=== PATIENT | male | born 1980 | race Caucasian/White ===

== ENCOUNTER 2017-02-09 20:05 | Emergency (ER) | payer OTHER ==
[2017-02-09] MEDS ORDERED: Zofran 4 MG/2 ML VIAL IV ONE (20:30)
[2017-02-09] MEDS ORDERED: TORAdol 30 mg Injection IV ONE (20:30)
[2017-02-09] MEDS ORDERED: Sodium Chloride 0.9% 1000 ML 1,000 ML IV SCH (20:30)
[2017-02-09] MEDS ORDERED: Sodium Chloride 0.9% 1000 ML 1,000 ML ONE (20:36)
[2017-02-09] MEDS ORDERED: TORAdol 30 mg Injection ONE (20:36)
[2017-02-09] MEDS ORDERED: Zofran 4 MG/2 ML VIAL ONE (20:36)
--- NOTE | 2017-02-09 20:37 | ERPHSYRPT ---
- History of Present Illness Time Seen by Provider: 02/09/17 20:27 Historian: patient Exam Limitations: no limitations Patient Subjective Stated Complaint: pt states he has been having intermittent lower back and lt abd/groin pain since lst night. Triage Nursing Assessment: pt alert and oriented, answers questions approp. pt ambulatory with steady gait noted. skin pwarm and dry. respirations nonlabored with lungs cta. abd soft and nonder, bowel sounds present x4 quads Physician History: SINCE LAST NIGHT PT HAS HAD INTERMITTENT SHARP/STABBING LEFT LOWER BACK PAIN, LEFT LOWER QUADRANT ABDOMINAL PAIN AND LEFT GROIN PAIN WITH NAUSEA AND DIAPHORESIS WHEN THE PAIN OCCURS. TODAY PT NOTICED TEA COLORED URINE AND URINARY URGENCY. LAST BM WAS THIS AM AND WNL. Allergies/Adverse Reactions: No Known Drug Allergies Allergy (Verified 02/09/17 20:28) Home Medications: Ustekinumab [Stelara] 90 mg SQ UD 02/09/17 [History] Hx Tetanus, Diphtheria Vaccination/Date Given: Yes Hx Influenza Vaccination/Date Given: No Hx Pneumococcal Vaccination/Date Given: No Immunizations Up to Date: Yes - Review of Systems Constitutional: No Fever, No Chills Respiratory: No Dyspnea Cardiac: No Chest Pain Abdominal/Gastrointestinal: Abdominal Pain (LEFT LOWER), Nausea Genitourinary Symptoms: Urgency, Other (LEFT GROIN PAIN) Musculoskeletal: Back Pain (LEFT LOWER) Endocrine: Excessive Sweating All Other Systems: Reviewed and Negative - Past Medical History Pertinent Past Medical History: Yes Other Medical History: plaque psoriasis - Past Surgical History Past Surgical History: No - Social History Smoking Status: Current every day smoker How long have you smoked: 20yrs Exposure to second hand smoke: Yes Drug Use: none Patient Lives Alone: No - Nursing Vital Signs Nursing Vital Signs: Initial Vital Signs Temperature 97.5 F 02/09/17 20:15 Pulse Rate 84 02/09/17 20:15 Respiratory Rate 16 02/09/17 20:15 Blood Pressure 152/91 02/09/17 20:15 O2 Sat by Pulse Oximetry 96 02/09/17 20:15 Pain Scale Pain Intensity 6 - Physical Exam General Appearance: alert Eye Exam: PERRL/EOMI Ears, Nose, Throat Exam: TMs normal, pharynx normal, moist mucous membranes Neck Exam: normal inspection Respiratory Exam: lungs clear Cardiovascular Exam: normal heart sounds Gastrointestinal/Abdomen Exam: soft, normal bowel sounds, No tenderness Back Exam: normal range of motion Extremity Exam: normal inspection, No pedal edema Neurologic Exam: alert, cooperative Skin Exam: warm, dry SpO2 Interpretation: normal SpO2: 96 Oxygen Delivery: Room Air - Course Nursing assessment & vital signs reviewed: Yes - CT Exams Abdomen/Pelvis CT Interpretation: Discussed w/radiologist (NO COMPS. 4MM URINARY BLADDER STONE ADJACENT TO LEFT UVJ WITH MILD LEFT URETER PROMINENCE & MILD HYDRONEPHROSIS CONSISTENT WITH RECENT PASSAGE. REMAINING ABD/PEL NEGATIVE.) Ordered Tests: Active Orders 24 hr Category Date Time Status IV Insertion STAT Care 02/09/17 20:30 Active ABDOMEN AND PELVIS W/0 CONTRAS [CT] Stat Exams 02/09/17 20:31 Taken AMYLASE Stat Lab 02/09/17 20:30 Completed CBC W DIFF Stat Lab 02/09/17 20:30 Completed CMP Stat Lab 02/09/17 20:30 Completed CULTURE,URINE Stat Lab 02/09/17 20:30 Received LIPASE Stat Lab 02/09/17 20:30 Completed MAG [MAGNESIUM] Stat Lab 02/09/17 20:30 Completed UA W/ MICROSCOPIC Stat Lab 02/09/17 20:30 Completed Medication Summary Generic Name Dose Route Start Last Admin Trade Name Freq PRN Reason Stop Dose Admin Sodium Chloride 1,000 mls @ 100 mls/hr 02/09/17 20:30 02/09/17 20:41 Sodium Chloride 0.9% 1000 Ml IV 03/11/17 20:29 100 mls/hr .Q10H TEOFILO Administration Discontinued Medications Generic Name Dose Route Start Last Admin Trade Name Freq PRN Reason Stop Dose Admin Ketorolac Tromethamine 30 mg 02/09/17 20:30 02/09/17 20:41 Toradol 30 Mg Injection IV 02/09/17 20:31 30 mg STAT ONE Administration Ketorolac Tromethamine Confirm 02/09/17 20:36 Toradol 30 Mg Injection Administered 02/09/17 20:37 Dose 30 mg .ROUTE .STK-MED ONE Ondansetron HCl 4 mg 02/09/17 20:30 02/09/17 20:41 Zofran 4 Mg/2 Ml Vial IV 02/09/17 20:31 4 mg STAT ONE Administration Ondansetron HCl Confirm 02/09/17 20:36 Zofran 4 Mg/2 Ml Vial Administered 02/09/17 20:37 Dose 4 mg .ROUTE .STK-MED ONE Lab/Rad Data: Laboratory Result Diagrams 02/09/17 20:30 02/09/17 20:30 Laboratory Results 02/09/17 02/09/17 02/09/17 Range/Units 20:30 20:30 20:30 WBC (4.0-10.5) K/mm3 RBC (4.1-5.6) M/mm3 Hgb (12.5-18.0) gm/dl Hct (42-50) % MCV (78-100) fl MCH (26-32) pg MCHC (32-36) g/dl RDW (11.5-14.0) % Plt Count (150-450) K/mm3 MPV (6-9.5) fl Gran % (36.0-66.0) % Lymphocytes % (24.0-44.0) % Monocytes % (0.0-12.0) % Eosinophils % (0.00-5.0) % Basophils % (0.0-0.4) % Basophils # (0-0.4) Sodium 139 (136-145) mEq/L Potassium 4.0 (3.5-5.1) mEq/L Chloride 102 (98-107) mEq/L Carbon Dioxide 26.4 (21-32) mEq/L Anion Gap 14.4 (5-15) MEQ/L BUN 10 (9-20) mg/dL Creatinine 1.07 (0.55-1.30) mg/dl Estimated GFR > 60 ML/MIN Glucose 97 (70-110) MG/DL Calcium 9.5 (8.5-10.1) mg/dL Magnesium 2.1 (1.8-2.4) mg/dL Total Bilirubin 0.40 (0.2-1.0) mg/dL AST 16 (15-37) U/L ALT 36 (12-78) U/L Alkaline Phosphatase 83 (46-116) U/L Serum Total Protein 7.8 (6.4-8.2) gm/dL Albumin 4.2 (3.4-5.0) g/dL Amylase 49 (25-115) U/L Lipase 123 (73-393) U/L Ur Collection Type CLEAN CATCH Urine Color YELLOW (YELLOW) Urine Appearance CLOUDY (CLEAR) Urine pH 5.0 (5-6) Ur Specific [place] 1.025 (1.005-1.025) Urine Protein TRACE (Negative) Urine Ketones NEGATIVE (NEGATIVE) Urine Blood 250 (0-5) [place]/ul Urine Nitrite NEGATIVE (NEGATIVE) Urine Bilirubin NEGATIVE (NEGATIVE) Urine Urobilinogen NORMAL (0-1) mg/dL Ur Leukocyte Esterase NEGATIVE (NEGATIVE) Urine Microscopic RBC >100 (0-2) /HPF Urine Bacteria FEW (NEGATIVE) /HPF Urine Mucus SLIGHT (NEGATIVE) /HPF Urine Glucose NEGATIVE (NEGATIVE) mg/dL Specimen Received [id number] 02/09/17 Range/Units 20:30 WBC 14.1 H (4.0-10.5) K/mm3 RBC 5.88 H (4.1-5.6) M/mm3 Hgb 16.2 (12.5-18.0) gm/dl Hct 48.5 (42-50) % MCV 82.5 (78-100) fl MCH 27.5 (26-32) pg MCHC 33.4 (32-36) g/dl RDW 14.8 H (11.5-14.0) % Plt Count 232 (150-450) K/mm3 MPV 11.6 H (6-9.5) fl Gran % 62.5 (36.0-66.0) % Lymphocytes % 25.4 (24.0-44.0) % Monocytes % 8.2 (0.0-12.0) % Eosinophils % 3.3 (0.00-5.0) % Basophils % 0.6 (0.0-0.4) % Basophils # 0.08 (0-0.4) Sodium (136-145) mEq/L Potassium (3.5-5.1) mEq/L Chloride (98-107) mEq/L Carbon Dioxide (21-32) mEq/L Anion Gap (5-15) MEQ/L BUN (9-20) mg/dL Creatinine (0.55-1.30) mg/dl Estimated GFR ML/MIN Glucose (70-110) MG/DL Calcium (8.5-10.1) mg/dL Magnesium (1.8-2.4) mg/dL Total Bilirubin (0.2-1.0) mg/dL AST (15-37) U/L ALT (12-78) U/L Alkaline Phosphatase (46-116) U/L Serum Total Protein (6.4-8.2) gm/dL Albumin (3.4-5.0) g/dL Amylase (25-115) U/L Lipase (73-393) U/L Ur Collection Type Urine Color (YELLOW) Urine Appearance (CLEAR) Urine pH (5-6) Ur Specific [place] (1.005-1.025) Urine Protein (Negative) Urine Ketones (NEGATIVE) Urine Blood (0-5) [place]/ul Urine Nitrite (NEGATIVE) Urine Bilirubin (NEGATIVE) Urine Urobilinogen (0-1) mg/dL Ur Leukocyte Esterase (NEGATIVE) Urine Microscopic RBC (0-2) /HPF Urine Bacteria (NEGATIVE) /HPF Urine Mucus (NEGATIVE) /HPF Urine Glucose (NEGATIVE) mg/dL Specimen Received - Departure Time of Disposition: 21:42 Departure Disposition: Home Clinical Impression: LEFT RENAL COLIC Condition: Stable Critical Care Time: No Referrals: DOCTOR,NO FAMILY [Primary Care Provider] - Instructions: Kidney Stones Additional Instructions: FOLLOW UP WITH PRIVATE DOCTOR TOMORROW. STRAIN ALL URINES. FOLLOW UP WITH DR BORGES(UROLOGIST): CALL [phone] TOMORROW FOR AN APPOINTMENT. Prescriptions: Promethazine HCl 25 mg [Phenergan 25 mg] 25 mg PO Q4H PRN PRN #14 tablet PRN Reason: Nausea/Vomiting
[2017-02-09 20:40] LABS: BASOPHIL % 0.6 % (0.0-0.4); Eosinophil % 3.3 % (0.00-5.0); Granulocytes % 62.5 % (36.0-66.0); Lymphocytes % 25.4 % (24.0-44.0); Mean Cell Volume 82.5 fl (78-100); Mean Platelet Volume 11.6 fl (6-9.5); Monocytes % 8.2 % (0.0-12.0); Platelet Count 232 K/mm3 (150-450); Red Blood Count 5.88 M/mm3 (4.1-5.6); Red Cell Distribution Width 14.8 % (11.5-14.0); White Blood Count 14.1 K/mm3 (4.0-10.5)
[2017-02-09 20:44] LABS: Mean Corpuscular Hemoglobin 27.5 pg (26-32)
[2017-02-09 20:51] LABS: Collection Type CLEAN CATCH
[2017-02-09 20:52] LABS: ADD URINE CULTURE? YES (NO); Bacteria FEW /HPF (NEGATIVE); Bilirubin NEGATIVE (NEGATIVE); Blood 250 Ery/ul (0-5); COMPLETE URINE MICROSCOPIC? YES; Glucose NEGATIVE (NEGATIVE); Leukocyte Esterase NEGATIVE (NEGATIVE); Mucus SLIGHT /HPF (NEGATIVE)
[2017-02-09 20:55] LABS: ALBUMIN 4.2 g/dL (3.4-5.0); ALKALINE PHOSPHATASE 83 U/L (46-116); ANION GAP 14.4 MEQ/L (5-15); BLOOD UREA NITROGEN 10 mg/dL (9-20); CHLORIDE 102 mEq/L (98-107); Carbon Dioxide 26.4 mEq/L (21-32); Glucose 97 MG/DL (70-110); LIPASE 123 U/L (73-393); SGOT/AST 16 U/L (15-37); SGPT/ALT 36 U/L (12-78); SODIUM 139 mEq/L (136-145); Total Protein 7.8 gm/dL (6.4-8.2)
[2017-02-09] MEDS ORDERED: NORCO 5/325 MG PO ONE (21:42)
[2017-02-09] MEDS ORDERED: NORCO 5/325 MG ONE (21:48)
[2017-02-09 22:01] VITALS: BP 132/73; PULSE 67; O2SAT 95
--- NOTE | 2017-02-10 08:43 | XRAY ---
Indication: Left abdomen/groin pain. Voiding frequency. Urine discoloration. Multiple contiguous axial images obtained through the abdomen and pelvis without contrast as ordered. Comparison: None Lung bases demonstrate minimal left base dependent atelectasis. Left posterior 3 mm noncalcified nodule probably granulomatous in this demographic. Heart is not enlarged. Noncontrasted stomach and bowel loops appear nonobstructed. Normal appendix. No free fluid/air. A few hepatic calcified granulomas. There is a 4 mm calculus in the left posterior urinary bladder adjacent to the UVJ. Left ureter is prominent up to 7 mm and there is mild hydronephrosis consistent with recent passage of said calculus. Remaining liver, gallbladder, pancreas, spleen, adrenal glands, right kidney, right ureter, bladder, and aorta appear unremarkable for noncontrast exam. Osseous structures intact. Impression: 1. 4 mm urinary bladder calculus with left-sided hydronephrosis/hydroureter from recent passage. 2. Left lung base noncalcified micronodule favored to be granulomatous. CT DI 23.29
== END 2017-02-09 22:03 | disposition home or self-care (01) ==
LOC: ED 20:05
DX: N23 Unspecified renal colic (principal); M54.5 Low back pain; R10.9 Unspecified abdominal pain; R11.0 Nausea
CPT/HCPCS: 36000; 36415; 74176; 80053; 81000; 82150; 83690; 83735; 85025; 87086; 96360; 96361; 96374; 96375; 99284; J1885; J2405; A9270-GY

== ENCOUNTER 2020-01-21 21:58 | Emergency (ER) | payer BC, OTHER ==
[2020-01-21] MEDS ORDERED: MORPHINE SULFATE 4 MG INJ IM ONE (22:12)
[2020-01-21] MEDS ORDERED: MORPHINE SULFATE 4 MG INJ ONE (22:16)
--- NOTE | 2020-01-21 22:50 | ERPHSYRPT ---
- History of Present Illness Time Seen by Provider: 01/21/20 22:04 Source: patient Exam Limitations: no limitations Patient Subjective Stated Complaint: pt c/o falling onto rt shoulder Triage Nursing Assessment: pt states, "I went fishing, was walking on the side of the bank, slipped in some mud and fell on my rt arm/shoulder." Pt unable to lift arm up fully or over his head, states, "when I get to a certain level, it feels like it pops out of place". radial pulse present and strong. Physician History: 39 years old male presented in the ER with chief complaint of right shoulder pain sudden onset after he slipped in the mud after fishing and tried to catch himself with his elbow and jim his right shoulder. Patient reports moderate to severe pain sharp shooting with movements at upper lateral shoulder and gets worse after raising his arm above shoulder level/circumduction. No numbness tingling or weakness of hand. No injury anywhere else. Occurred: just prior to arrival Method of Injury: fell Quality: sharpness, stabbing Severity of Pain-Max: moderate Severity of Pain-Current: moderate Extremities Pain Location: shoulder: right Modifying Factors: Improves With: immobilization, movement, rest Associated Symptoms: none Allergies/Adverse Reactions: Penicillins Adverse Reaction (Verified 01/21/20 22:03) pt unsure Home Medications: Ustekinumab [Stelara] 90 mg SQ UD 02/09/17 [History] Hx Tetanus, Diphtheria Vaccination/Date Given: Yes Hx Influenza Vaccination/Date Given: No Hx Pneumococcal Vaccination/Date Given: No Immunizations Up to Date: Yes Travel Risk - International Travel Have you traveled outside of the country in past 3 weeks: No - Coronavirus Screening Are you exhibiting any of the following symptoms?: No Close contact with a COVID-19 positive Pt in past 14-21 Days: No - Review of Systems Constitutional: No Symptoms Eyes: No Symptoms Ears, Nose, & Throat: No Symptoms Respiratory: No Symptoms Cardiac: No Symptoms (, Now) Abdominal/Gastrointestinal: No Symptoms Genitourinary Symptoms: No Symptoms Musculoskeletal: Fall, Joint Pain Skin: No Symptoms Neurological: No Symptoms Psychological: No Symptoms Endocrine: No Symptoms - Past Medical History Pertinent Past Medical History: Yes Neurological History: No Pertinent History ENT History: No Pertinent History Cardiac History: No Pertinent History Respiratory History: No Pertinent History Endocrine Medical History: No Pertinent History Musculoskeletal History: Fractures GI Medical History: No Pertinent History History: No Pertinent History Psycho-Social History: No Pertinent History Male Reproductive Disorders: No Pertinent History Other Medical History: plaque psoriasis, fx lt hand - Past Surgical History Past Surgical History: No Neuro Surgical History: No Pertinent History Cardiac: No Pertinent History Respiratory: No Pertinent History Gastrointestinal: No Pertinent History Genitourinary: No Pertinent History Musculoskeletal: No Pertinent History Male Surgical History: No Pertinent History - Social History Smoking Status: Current every day smoker How long have you smoked: 25 yrs Exposure to second hand smoke: No Drug Use: none Patient Lives Alone: No - Nursing Vital Signs Nursing Vital Signs: Initial Vital Signs Temperature 97.7 F 01/21/20 22:04 Pulse Rate 85 01/21/20 22:04 Respiratory Rate 18 01/21/20 22:04 Blood Pressure 139/79 01/21/20 22:04 O2 Sat by Pulse Oximetry 97 01/21/20 22:04 Pain Scale Pain Intensity 4 - Physical Exam General Appearance: no apparent distress Eyes, Ears, Nose, Throat Exam: normal ENT inspection Neck Exam: normal inspection, non-tender, supple, full range of motion Cardiovascular/Respiratory Exam: chest non-tender, normal breath sounds, regular rate/rhythm Abdominal Exam: non-tender Shoulder Exam: normal inspection, limited ROM, soft tissue tenderness (Upper lateral shoulder/acromioclavicular area), No bone tenderness Elbow/Forearm Exam: normal inspection, non-tender, no evidence of injury, normal ROM Wrist Exam: normal inspection, non-tender, no evidence of injury Hand Exam: normal inspection, non-tender Neuro/Tendon Exam: normal sensation, normal motor functions Mental Status Exam: alert, oriented x 3, cooperative Skin Exam: normal color SpO2: 97 O2 Delivery: Room Air - Course Nursing assessment & vital signs reviewed: Yes Ordered Tests: Active Orders 24 hr Category Date Time Status SHOULDER Stat Exams 01/21/20 22:30 Taken Medication Summary Discontinued Medications Generic Name Dose Route Start Last Admin Trade Name Freq PRN Reason Stop Dose Admin Morphine Sulfate 4 mg 01/21/20 22:12 01/21/20 22:17 Morphine Sulfate 4 Mg Inj IM 01/21/20 22:13 4 mg STAT ONE Administration Morphine Sulfate Confirm 01/21/20 22:16 Morphine Sulfate 4 Mg Inj Administered 01/21/20 22:17 Dose 4 mg .ROUTE .STK-MED ONE - Progress Progress: improved Progress Note: 01/21/20 22:48 X-rays ruled out fracture dislocation. Has questionable separation of AC joint. I believe patient has ligamentous injury. Given morphine here, on reeva luation pain is better. Intact distal neurovascular. Placed in a sling and recommended outpatient follow-up with Ortho clinic. 01/21/20 22:49 Counseled pt/family regarding: diagnosis, need for follow-up, rad results - Departure Departure Disposition: Home Clinical Impression: Sprain of shoulder, right Qualifiers: Encounter type: initial encounter Shoulder sprain type: unspecified sprain Qualified Code(s): S43.401A - Unspecified sprain of right shoulder joint, initial encounter Condition: Stable Critical Care Time: No Referrals: DOCTOR,NO FAMILY [Primary Care Provider] - Instructions: Shoulder Sprain (DC) Additional Instructions: Take pain medications as needed. Follow-up with your primary care physician and Ortho clinic for reevaluation. Return to ER for any worsening. Prescriptions: Ibuprofen 600 mg PO Q6HPRN PRN 10 Days #20 tablet PRN Reason: Pain Hydrocodone/APAP 5-325 Tab^^^ [[place] 5-325 Tablet^^^] 1 tab PO Q6HPRN PRN #10 tablet MDD 6 PRN Reason: Pain
[2020-01-21 23:12] VITALS: BP 138/80; PULSE 88; O2SAT 98
--- NOTE | 2020-01-22 20:05 | XRAY ---
Indication: Pain following fall. Comparison: None 3 view right shoulder demonstrates tiny well-circumscribed inferior glenoid process heterotopic ossification either degenerative versus old injury. No other bony, articular, or soft tissue abnormalities.
== END 2020-01-21 23:12 | disposition home or self-care (01) ==
LOC: ED 21:58
DX: S43.401A Unspecified sprain of right shoulder joint, initial encounter (principal); W01.0XXA Fall on same level from slipping, tripping and stumbling without subsequent striking against object, initial encounter; Y93.01 Activity, walking, marching and hiking; Y92.89 Other specified places as the place of occurrence of the external cause
CPT/HCPCS: 73030; 96372; 99284; J2270

== ENCOUNTER 2020-01-29 22:58 | Emergency (ER) | payer BC ==
[2020-01-29] MEDS ORDERED: Norflex 60 MG/2 ML IM ONE (23:20)
[2020-01-29] MEDS ORDERED: TORAdol 30 mg Injection IM ONE (23:20)
[2020-01-29] MEDS ORDERED: Norflex 60 MG/2 ML ONE (23:28)
[2020-01-29] MEDS ORDERED: TORAdol 30 mg Injection ONE (23:28)
--- NOTE | 2020-01-29 23:35 | ERPHSYRPT ---
- History of Present Illness Time Seen by Provider: 01/29/20 23:27 Source: patient Exam Limitations: no limitations Occurred: last week Method of Injury: sports injury Quality: constant, sharpness, throbbing Severity of Pain-Max: moderate Severity of Pain-Current: moderate Extremities Pain Location: shoulder: right Modifying Factors: Improves With: cold therapy, immobilization, movement Associated Symptoms: none Allergies/Adverse Reactions: Penicillins Adverse Reaction (Verified 01/29/20 23:06) pt unsure Home Medications: Ustekinumab [Stelara] 90 mg SQ UD 02/09/17 [History] Hx Tetanus, Diphtheria Vaccination/Date Given: Yes Hx Influenza Vaccination/Date Given: No Hx Pneumococcal Vaccination/Date Given: No - Review of Systems Constitutional: No Fever, No Chills Eyes: No Symptoms Ears, Nose, & Throat: No Symptoms Respiratory: No Cough, No Dyspnea Cardiac: No Chest Pain, No Edema, No Syncope Abdominal/Gastrointestinal: No Abdominal Pain, No Nausea, No Vomiting, No Diarrhea Genitourinary Symptoms: No Dysuria Musculoskeletal: Joint Pain, No Back Pain, No Neck Pain Skin: No Rash Neurological: No Dizziness, No Focal Weakness, No Sensory Changes Psychological: No Symptoms Endocrine: No Symptoms All Other Systems: Reviewed and Negative - Past Medical History Pertinent Past Medical History: Yes Neurological History: No Pertinent History ENT History: No Pertinent History Cardiac History: No Pertinent History Respiratory History: No Pertinent History Endocrine Medical History: No Pertinent History Musculoskeletal History: Fractures GI Medical History: No Pertinent History History: No Pertinent History Psycho-Social History: No Pertinent History Male Reproductive Disorders: No Pertinent History Other Medical History: plaque psoriasis, fx lt hand - Past Surgical History Past Surgical History: No Neuro Surgical History: No Pertinent History Cardiac: No Pertinent History Respiratory: No Pertinent History Gastrointestinal: No Pertinent History Genitourinary: No Pertinent History Musculoskeletal: No Pertinent History Male Surgical History: No Pertinent History - Social History Smoking Status: Current every day smoker How long have you smoked: 25 yrs Exposure to second hand smoke: No Drug Use: none Patient Lives Alone: No - Nursing Vital Signs Nursing Vital Signs: Initial Vital Signs Temperature 97.8 F 01/29/20 23:10 Pulse Rate 83 01/29/20 23:10 Respiratory Rate 16 01/29/20 23:10 Blood Pressure 157/100 01/29/20 23:10 O2 Sat by Pulse Oximetry 96 01/29/20 23:10 Pain Scale Pain Intensity 8 - Physical Exam General Appearance: no apparent distress, alert Eyes, Ears, Nose, Throat Exam: moist mucous membranes Neck Exam: non-tender, supple Cardiovascular/Respiratory Exam: chest non-tender, normal breath sounds, regular rate/rhythm, no respiratory distress Abdominal Exam: non-tender, No guarding Back Exam: normal inspection, No vertebral tenderness Shoulder Exam: limited ROM, soft tissue tenderness Elbow/Forearm Exam: normal inspection, non-tender, no evidence of injury, normal ROM Wrist Exam: normal inspection, non-tender, no evidence of injury, normal ROM Hand Exam: normal inspection, non-tender, no evidence of injury, normal ROM DTR - Upper Extremity Exam: bicep (R): 2+, bicep (L): 2+, tricep (R): 2+, tricep (L): 2+ Neuro/Tendon Exam: normal sensation, normal motor functions Mental Status Exam: alert, oriented x 3, cooperative Skin Exam: normal color, warm, dry - Course Nursing assessment & vital signs reviewed: Yes - Radiology Exams Right Shoulder X-ray Interpretation: Reviewed by me, Other (calcified labrum tear or small avulsion) Ordered Tests: Active Orders 24 hr Category Date Time Status SHOULDER Stat Exams 01/30/20 23:19 Ordered Medication Summary Discontinued Medications Generic Name Dose Route Start Last Admin Trade Name [place] PRN Reason Stop Dose Admin Ketorolac Tromethamine 60 mg 01/29/20 23:20 01/29/20 23:29 Toradol 30 Mg Injection IM 01/29/20 23:21 60 mg STAT ONE Administration Ketorolac Tromethamine Confirm 01/29/20 23:28 Toradol 30 Mg Injection Administered 01/29/20 23:29 Dose 60 mg .ROUTE .STK-MED ONE Orphenadrine Citrate 60 mg 01/29/20 23:20 01/29/20 23:30 Norflex 60 Mg/2 Ml IM 01/29/20 23:21 60 mg STAT ONE Administration Orphenadrine Citrate Confirm 01/29/20 23:28 Norflex 60 Mg/2 Ml Administered 01/29/20 23:29 Dose 60 mg .ROUTE .STK-MED ONE - Progress Progress: improved, re-examined Progress Note: 01/30/20 00:10 improved after medication. Counseled pt/family regarding: diagnosis, need for follow-up, rad results - Departure Departure Disposition: Home Clinical Impression: Sprain of shoulder, right, Glenoid labrum tear, rotator cuff tear/injury, Instability of right shoulder joint, Recurrent dislocation of shoulder joint Condition: Good Critical Care Time: No Referrals: DOCTOR,NO FAMILY [Primary Care Provider] - Instructions: Shoulder Dislocation (DC), Rotator Cuff Injury (DC), Shoulder Labral Tear (DC), Shoulder Sprain (DC) Additional Instructions: followup with your ortho Dr. as planned. return meantime if any concerns, or shoulder does not relocate after an episode. continue to avoid any lifting or application of force with right arm. followup blood pressure with your Dr. Prescriptions: Tizanidine HCl 4 mg [Zanaflex 4 MG] 4 mg PO Q6HPRN PRN 10 Days #20 tablet PRN Reason: Pain
[2020-01-30 00:23] VITALS: BP 152/103; PULSE 84; O2SAT 97
--- NOTE | 2020-01-30 07:27 | XRAY ---
Indication: Dislocation. Comparison: January 21, 2020. 3 view right shoulder unchanged again demonstrating tiny inferior glenoid process ossification either degenerative versus sequela to injury. CT may yield further information. No other bony, articular, or soft tissue abnormalities.
== END 2020-01-30 00:23 | disposition home or self-care (01) ==
LOC: ED 22:58
DX: S43.432A Superior glenoid labrum lesion of left shoulder, initial encounter (principal); M75.101 Unspecified rotator cuff tear or rupture of right shoulder, not specified as traumatic; M25.311 Other instability, right shoulder; M24.411 Recurrent dislocation, right shoulder; Y93.79 Activity, other specified sports and athletics
CPT/HCPCS: 73030; 96372; 99284; J1885; J2360